=== PATIENT | female | born 1950 | race Caucasian/White ===

== ENCOUNTER → 2017-08-07 | Day surgery (SDC) | payer MEDICARE, OTHER ==
[~2017-08-07] MED LIST: BETH25TA2 PO; BUSP10TA PO; FURO20TA PO; HYDR-3516 PO; LIDOCAINE HCL 1% PF 30 ML VIAL INFIL ONE; MEPERIDINE HCL 25 MG/ML VIAL IM ONE; METO1TAB9 PO; MONT10TA4 PO; RABE1TAB PO; SODIUM CHLORIDE 0.9% 10 ML VIAL ONE; TEMA30CA PO; VENL100T PO; VYTO10TA27 PO; methylPREDNISolone ACETATE 80 MG/ML VIAL ONE
--- NOTE | 2017-08-07 09:08 | M6 ---
cc: Danielle GONZALEZ DATE 08/07/2017 DATE OF 1950 PROCEDURE Fluoroscopically guided L5-S1 interlaminar epidural steroid injection. PROCEDURE NOTE History and physical was completed and signed. Consent was signed. Procedure site was marked. Medications were listed and reconciled. Pain score was recorded. Allergies were noted. Time out was taken. Fluoroscopy time was recorded where applicable. Blood pressure cuff, pulse oximeter and EKG were applied. The patient was placed in the prone position on a [place] table. The skin was prepped with alcohol and 10% Betadine solution and draped with sterile drapes. Fluoroscopy was used to visualize the L5-S1 interlaminar space. The skin was infiltrated with 1% Xylocaine using a 27 gauge needle then a 5-1/2 inch 17-gauge Coyle needle was advanced using fluoroscopic guidance and the [id number] technique into the epidural space at L5-S1 slightly to the right of the midline. There was negative aspiration for blood or any other type of fluid and at that location, the patient was given 8 mL of half percent Xylocaine, 80 mg of Depo-Medrol. Following this, the patient was taken to the recovery room with stable vital signs neurologically intact. MD ALEXEI Romo/AMADO 8:48 AM 8:52 AM
== END | disposition home or self-care (01) ==
LOC: PHSDC 07:16
PROVIDERS: ATTEND Pain Medicine Interventional Pain Medicine
DX: M54.5 Low back pain (principal)
CPT/HCPCS: 62323; J1040; J2175